=== PATIENT | male | born 1960 | race Caucasian/White ===

== ENCOUNTER 2016-08-09 09:22 | Emergency (ER) | payer OTHER ==
[~2016-08-09] VITALS: Wt 92.0 kg
[2016-08-09] MEDS ORDERED: ONDANSETRON 4 MG INJ IV STA (09:56)
[2016-08-09] MEDS ORDERED: morphine 4 MG/ML VIAL IV STA (09:56)
[2016-08-09] MEDS ORDERED: SOD CHLORIDE 0.9% 1,000 ML IV STA (09:56)
[2016-08-09 10:14] LABS: ADD SCAN DIFF NO
[2016-08-09 10:15] LABS: BASOPHILS % 0.5 % (0.0-2.0); EOSINOPHILS # 0.2 10^3/ul (0.0-0.5); EOSINOPHILS % 3.1 % (0.0-7.0); HEMATOCRIT 44.3 % (42.0-52.0); HEMOGLOBIN 15.6 g/dl (14.0-18.0); LYMPHOCYTES # 1.3 10^3/ul (0.8-2.9); MEAN CORPUSCULAR HEMOGLOBIN 32.1 pg (29.0-33.0); MEAN CORPUSCULAR HGB CONC 35.2 g/dl (32.0-37.0); MEAN CORPUSCULAR VOLUME 91.2 fl (82.0-101.0); MEAN PLATELET VOLUME 10.6 fl (7.4-10.4); MONOCYTE # 0.5 10^3/ul (0.3-0.9); MONOCYTES % 8.1 % (0.0-11.0); PLATELET COUNT 174 10^3/UL (140-415); RED BLOOD COUNT 4.86 10^6/ul (4.70-6.10); RED CELL DISTRIBUTION WIDTH 12.2 % (11.5-14.5)
[2016-08-09 10:38] LABS: ALANINE AMINOTRANSFERASE 56 IU/L (13-69); ALBUMIN 4.5 g/dl (3.3-4.9); ALBUMIN/GLOBULIN RATIO 1.73; ALKALINE PHOSPHATASE 69 IU/L (42-121); ANION GAP 15 (8-16); ASPARTATE AMINO TRANSFERASE 41 IU/L (15-46); BILIRUBIN,INDIRECT 0.6 mg/dl (0-1.1); BILIRUBIN,TOTAL 0.6 mg/dl (0.2-1.3); BLOOD UREA NITROGEN 14 mg/dl (7-20); CALCIUM 9.5 mg/dl (8.4-10.2); CARBON DIOXIDE 26 mmol/L (21-31); CHLORIDE 105 mmol/L (97-110); CREATININE 0.74 mg/dl (0.61-1.24); GLUCOSE 101 mg/dl (70-220); POTASSIUM 4.2 mmol/L (3.5-5.1); SODIUM 142 mmol/L (135-144); TOTAL PROTEIN 7.1 g/dl (6.1-8.1)
--- NOTE | 2016-08-09 10:50 | RADRPT ---
PROCEDURE: Abdominal Ultrasound (right upper quadrant). CLINICAL INDICATION: Abdominal pain TECHNIQUE: Multiple real-time longitudinal and transverse images of the right upper quadrant of th e abdomen were acquired utilizing a curved array transducer. Images were reviewed on a high-resoluti on PACS workstation. COMPARISON: None FINDINGS: The liver is normal in size and echogenicity. The portal vein is patent. No focal masses are identi fied. There is no evidence of intra or extrahepatic ductal dilatation. The common bile duct measur es 5.0 mm in diameter. No gallstones or gallbladder wall thickening is seen. The visualized portions of the pancreas are unremarkable with obscuration of the tail of the pancrea s. No free fluid is identified. There is no evidence of right hydronephrosis or renal calcification. The right kidney measures 10.2 cm in length. The visualized portions of the aorta and inferior vena cava are within normal limits. IMPRESSION: 1. Unremarkable right upper quadrant ultrasound. RPTAT: KK .Allen Naqvi MD, MD Date Time Electronically viewed and signed by .Allen Naqvi MD, MD on 08/09/2016 10:50 .B/
[2016-08-09 10:51] LABS: TROPONIN-I < 0.012 ng/ml (0.00-0.12)
--- NOTE | 2016-08-09 11:14 | RADRPT ---
PROCEDURE: CT Abdomen and Pelvis without contrast. CLINICAL INDICATION: Abdominal pain TECHNIQUE: CT scan of the abdomen and pelvis without contrast was performed on a multi-slice CT [facility] without intravenous contrast. Coronal and sagittal reformatted images were obtained from the axial source images. Images were reviewed on a high-resolution PACS workstation. One or more of the following does reduction techniques were used: Automated exposure control; adjustment of the mA an d/or kV according to patient size; use of the aorta of reconstruction technique. The total exam CTD I equals 15.4 mGy and the total exam DLP equals 1072.49 mGy-cm. COMPARISON: None available. FINDINGS: There are minimal dependent changes in the posterior lower lobes. The lung bases are otherwise constance r. Heart size is normal, and there is no evidence of pericardial thickening or effusion. The liver, spleen, and pancreas are normal given limitations of a noncontrast CT examination. The g allbladder is normal. The adrenal glands are normal. The kidneys without renal calculus or hydronephrosis. The aorta is of normal caliber. There is no retroperitoneal lymph node enlargment. There is no evidence of large or small bowel obstruction. A normal appendix is identified. No michael e fluid or fluid collections are identified. No inflammatory changes are seen. There is a tiny kathryn umbilical hernia containing only fat. The prostate is mildly enlarged. No enlarged pelvic sidewall lymph nodes are seen. The bladder is w ithin normal limits. No free fluid is identified. The inguinal regions are unremarkable. There are mild degenerate change of the spine.. IMPRESSION: 1. No CT evidence of acute intra-abdominal or pelvic process. 2. No CT evidence of urolithiasis. 3. Tiny periumbilical hernia containing only fat. 4. Prostatomegaly. RPTAT: KK .Allen Naqvi MD, MD Date Time Electronically viewed and signed by .Allen Naqvi MD, MD on 08/09/2016 11:13 .B/
[2016-08-09 11:18] LABS: ADD UMIC YES; UR ASCORBIC ACID NEGATIVE (NEGATIVE); UR BILIRUBIN (Dip) NEGATIVE (NEGATIVE); UR BLOOD (Dip) 2+ mg/dL (NEGATIVE); UR CLARITY CLEAR (CLEAR); UR COLOR STRAW (YELLOW); UR GLUCOSE (Dip) NEGATIVE (NEGATIVE); UR KETONES (Dip) NEGATIVE (NEGATIVE); UR LEUKOCYTE ESTERASE (Dip) NEGATIVE Leu/ul (NEGATIVE); UR NITRITE (Dip) NEGATIVE (NEGATIVE); UR RBC 1 /HPF (0-5); UR SPECIFIC GRAVITY (Dip) 1.004 (1.003-1.030); UR TOTAL PROTEIN (Dip) NEGATIVE (NEGATIVE); UR UROBILINOGEN (Dip) NEGATIVE (NEGATIVE)
[2016-08-09] MEDS ORDERED: PANT40TA3 PO (11:34)
--- NOTE | 2016-08-09 11:35 | ERD ---
ER Documentation Chief Complaint Date/Time DATE: 08/09/16 TIME: 11:35 Chief Complaint ABD PAIN FOR SEVERAL MONTHS, HX OF HERNIA, ALSO N/V HPI Patient is a 56-year-old male with no medical problems who presents with abdominal pain. The patient says that he has stomach pain and the medication that he got is not working. He said that he has had this pain for over a year but it is getting worse. He said that he feels better with eating. He has had no blood in the stool. He has had workup before but has lost 15 pounds because of this. He has been to multiple hospitals for similar visits however upon review of old medical records this is the patient's first visit to the emergency department and review of the emergency department information exchange does not show visits to other hospitals. His primary doctor is Dr. Higinio Cordero. ROS All systems reviewed and are negative except as per history of present illness. Medications Home Meds Active Scripts Pantoprazole* (Protonix*) 40 Mg Tablet., 40 MG PO DAILY, #20 TAB Prov:YESSICA DYKES MD 08/09/16 Allergies Allergies: Coded Allergies: No Known Allergy (Unverified , 08/09/16) PMhx/Soc History of Surgery: No Anesthesia Reaction: No Hx Neurological Disorder: No Hx Respiratory Disorders: No Hx Cardiac Disorders: No Hx Psychiatric Problems: No Hx Miscellaneous Medical Probl: Yes (GERD) Hx Alcohol Use: No Hx Substance Use: No Hx Tobacco Use: No Smoking Status: Never smoker FmHx Family History: diabetes Physical Exam Vitals Vital Signs Date Time Temp Pulse Resp B/P Pulse Ox O2 Delivery O2 Flow Rate FiO2 08/09/16 11:37 61 20 114/75 96 Room Air 08/09/16 09:27 97.6 79 17 128/81 97 Physical Exam Const: No acute distress Head: Atraumatic Eyes: Normal Conjunctiva ENT: Normal External Ears, Nose and Mouth. Neck: Full range of motion..~ No meningismus. Resp: Clear to auscultation bilaterally Cardio: Regular rate and rhythm, no murmurs Abd: Soft, diffuse tenderness to palpation without rebound or guarding Skin: No petechiae or rashes Back: No midline or flank tenderness Ext: No cyanosis, or edema Neur: Awake and alert Psych: Normal Mood and Affect Result Diagram: 08/09/16 1000 08/09/16 1000 Results 24 hrs Laboratory Tests Test 08/09/16 10:00 08/09/16 11:00 White Blood Count 6.010^3/ul Red Blood Count 4.8610^6/ul Hemoglobin 15.6g/dl Hematocrit 44.3% Mean Corpuscular Volume 91.2fl Mean Corpuscular Hemoglobin 32.1pg Mean Corpuscular Hemoglobin Concent 35.2g/dl Red Cell Distribution Width 12.2% Platelet Count 10381^3/UL Mean Platelet Volume 10.6fl Neutrophils % 66.0% Lymphocytes % 21.0% Monocytes % 8.1% Eosinophils % 3.1% Basophils % 0.5% Nucleated Red Blood Cells % 0.0/100WBC Neutrophils # 4.010^3/ul Lymphocytes # 1.310^3/ul Monocytes # 0.510^3/ul Eosinophils # 0.210^3/ul Basophils # 0.010^3/ul Nucleated Red Blood Cells # 0.010^3/ul Sodium Level 142mmol/L Potassium Level 4.2mmol/L Chloride Level 105mmol/L Carbon Dioxide Level 26mmol/L Anion Gap 15 Blood Urea Nitrogen 14mg/dl Creatinine 0.74mg/dl Glucose Level 101mg/dl Calcium Level 9.5mg/dl Total Bilirubin 0.6mg/dl Direct Bilirubin 0.00mg/dl Indirect Bilirubin 0.6mg/dl Aspartate Amino Transf (AST/SGOT) 41IU/L Alanine Aminotransferase (ALT/SGPT) 56IU/L Alkaline Phosphatase 69IU/L Troponin I < 0.012ng/ml Total Protein 7.1g/dl Albumin 4.5g/dl Globulin 2.60g/dl Albumin/Globulin Ratio 1.73 Lipase 42U/L Urine Color STRAW Urine Clarity CLEAR Urine pH 7.0 Urine Specific [place] 1.004 Urine Ketones NEGATIVEmg/dL Urine Nitrite NEGATIVEmg/dL Urine Bilirubin NEGATIVEmg/dL Urine Urobilinogen NEGATIVEmg/dL Urine Leukocyte Esterase NEGATIVELeu/ul Urine Microscopic RBC 1/HPF Urine Microscopic WBC 1/HPF Urine Hemoglobin 2+mg/dL Urine Glucose NEGATIVEmg/dL Urine Total Protein NEGATIVEmg/dl Current Medications Medications (Trade) Dose Ordered Sig/Belen Route PRN Reason Start Time Stop Time Status Last Admin Dose Admin Sodium Chloride (NS) 1,000 ml @ 1,000 mls/hr Q1H STAT IV 6/27/17 09:56 08/09/16 10:55 DC 08/09/16 10:04 Morphine Sulfate (morphine) 4 mg ONCE STAT IV 08/09/16 09:56 08/09/16 09:58 DC 08/09/16 10:04 Ondansetron HCl (Zofran Inj) 4 mg ONCE STAT IV 08/09/16 09:56 08/09/16 09:58 DC 08/09/16 10:03 Procedures/MDM EKG read by me: Rate/Rhythm: Regular rate and rhythm at a rate of 66 Intervals: Normal Impression: No evidence of ischemia or arrhythmia CT negative per radiology. Ultrasound gallbladder negative per radiology. Patient is a 56-year-old male presents with abdominal pain. He had a full workup including laboratory studies, ultrasound gallbladder, and CT scan of the abdomen and pelvis. His workup was unremarkable and at this point I feel that outpatient management is appropriate the patient will be discharged. I doubt appendicitis, cholecystitis, pancreatitis, or bowel obstruction. Departure Diagnosis: Primary Impression: Abdominal pain Abdominal location: generalized Qualified Code: R10.84 - Generalized abdominal pain Condition: Fair Patient Instructions: Abdominal Pain Additional Instructions: Llame al doctor MAANA y vamshi rolando MARVIN PARA DENTRO DE 1-2 MCCANN.Dgale a la secretaria que nosotros le instruimos hacer esta marvin.Avise o llame si marshall condicin se empeora antes de la marvin. Regresa aqui si peor o no mejor. YESSICA DYKES MD Aug 09, 2016 11:35
[2016-08-09 11:37] VITALS: BP 114/75; PULSE 61; RESP 20
== END 2016-08-09 12:02 | disposition home or self-care (01) ==
LOC: E/R 09:22
DX: R10.84 Generalized abdominal pain (principal); R40.2362 Coma scale, best motor response, obeys commands, at arrival to emergency department; R11.2 Nausea with vomiting, unspecified; R40.2142 Coma scale, eyes open, spontaneous, at arrival to emergency department
CPT/HCPCS: 74176; 76705; 80053; 81001; 83690; 84484; 85025; 93005; J2270; J2405; J7030; 36415; 96374; 96375

== ENCOUNTER 2016-11-07 10:43 | Day surgery (SDC) | payer OTHER ==
[~2016-11-07] VITALS: Ht 175.3 cm; Wt 97.1 kg
[~2016-11-07 10:43] MED LIST: PANT40TA3 PO
[2016-11-07 11:35] VITALS: Ht 175.3 cm; Wt 97.1 kg
== END 2016-11-07 17:04 | disposition home or self-care (01) ==
LOC: GIL 10:43
PROVIDERS: ATTEND Internal Medicine
DX: R10.9 Unspecified abdominal pain (principal); Z53.9 Procedure and treatment not carried out, unspecified reason

== ENCOUNTER 2017-02-22 10:11 | Emergency (ER) | END 2017-02-22 16:41 | disposition home or self-care (01) ==

== ENCOUNTER 2017-03-13 11:22 | Day surgery (SDC) | END 2017-03-13 14:56 | disposition home or self-care (01) ==

== ENCOUNTER 2017-03-24 09:16 | Emergency (ER) | END 2017-03-24 14:19 | disposition home or self-care (01) ==

== ENCOUNTER 2017-11-15 08:45 | Emergency (ER) | END 2017-11-15 09:41 | disposition home or self-care (01) ==

== ENCOUNTER 2018-05-13 09:30 | Emergency (ER) | payer OTHER ==
[~2018-05-13] VITALS: Ht 182.9 cm; Wt 100.0 kg
[~2018-05-13 09:30] MED LIST changes: +ATOR40TA68 PO; +FLUO10CA17 PO; +HYDR-3980 PO; +NAPR-985 PO; +ONDA4TAB14 PO; -PANT40TA3 PO; +TRAZ-111 PO
[2018-05-13 09:36] VITALS: BP 133/79; PULSE 75; RESP 20; Ht 182.9 cm; Wt 100.0 kg
[2018-05-13] MEDS ORDERED: KETOROLAC 60 MG INJ IM STA (10:30)
[2018-05-13] MEDS ORDERED: CYCL10TA7 PO (10:46)
[2018-05-13] MEDS ORDERED: NAPR-985 PO (10:46)
--- NOTE | 2018-05-13 10:54 | ERD ---
ER Documentation Chief Complaint Chief Complaint Complains of back and neck pain x 3 days HPI This is a 57-year-old male with a nonsignificant past medical history presents ED with left posterior shoulder pain and upper back pain that extends into the neck for the past 1 week. Patient works at a [employer] and often lifts the heavy bodies. Patient denies any fall or injury to account for pain. Denies decreased range of motion, tingling, numbness, lack sensation, bowel/bladder incontinence, saddle paresthesias, fever, chills and all other symptoms. ROS All systems reviewed and are negative except as per history of present illness. Medications Home Meds Active Scripts Naproxen* (Naprosyn*) 500 Mg Tablet, 500 MG PO BID PRN for PAIN AND/OR INFLAMMATION, #30 TAB Prov:DEBBIE CONWAY PA-C 05/13/18 Cyclobenzaprine Hcl* (Cyclobenzaprine Hcl*) 10 Mg Tablet, 10 MG PO TID, #15 TAB Prov:DEBBIE CONWAY PA-C 05/13/18 Naproxen* (Naprosyn*) 500 Mg Tablet, 500 MG PO BID PRN for PAIN AND/OR INFLAMMATION, #30 TAB Prov:TERENCE RODRÍGUEZ PA-C 11/15/17 Ondansetron (Ondansetron Odt) 4 Mg Tab.rapdis, 4 MG PO Q6H PRN for NAUSEA AND/OR VOMITING, #30 TAB Prov:YESSICA DYKES MD 03/24/17 Hydrocodone/Acetaminophen ([place] 10-325 Tablet) 1 Each Tablet, 1 TAB PO Q6H PRN for PAIN, #7 TAB Prov:YESSICA DYKES MD 03/24/17 Reported Medications Trazodone Hcl* (Trazodone Hcl*) 50 Mg Tablet, 50 MG PO QHS, #30 TAB 03/13/17 Fluoxetine Hcl* (Fluoxetine Hcl*) 10 Mg Capsule, 10 MG PO DAILY, CAP 03/13/17 Atorvastatin* (Atorvastatin*) 40 Mg Tablet, 40 MG PO QHS, #30 TAB 02/22/17 Allergies Allergies: Coded Allergies: No Known Allergy (Unverified , 05/13/18) PMhx/Soc History of Surgery: No Anesthesia Reaction: No Hx Neurological Disorder: No Hx Respiratory Disorders: No Hx Cardiac Disorders: Yes (hypercholesterolemia) Hx Psychiatric Problems: No Hx Miscellaneous Medical Probl: No Hx Alcohol Use: Yes Hx Substance Use: No Hx Tobacco Use: No Smoking Status: Never smoker Physical Exam Vitals Vital Signs Date Temp Pulse Resp B/P (MAP) Pulse Ox O2 O2 Flow FiO2 Time Delivery Rate 05/13/18 98.1 75 20 133/79 95 09:36 (97) Physical Exam Const: No acute distress Head: Atraumatic Eyes: Normal Conjunctiva ENT: Normal External Ears, Nose and Mouth. Neck: Full range of motion. No meningismus. Resp: Clear to auscultation bilaterally Cardio: Regular rate and rhythm, no murmurs Back: No thoracic or lumbar midline tenderness, no step-off deformities, Ext: No cyanosis, or edema Upper Extremity -left, muscle spasm present along patient's left posterior shoulder extending up to neck Skin: No laceration, or evidence of external trauma Compartments: Soft Motor: Full active range of motion shoulder/elbow/wrist/hand Sensation: Intact shoulder/pinky/middle finger/thumb web space Bones: Nontender humerus/elbow/forearm/wrist/hand Snuffbox: Nontender Joints: No effusion Pulses/Perfusion: 2+ radial, Capillary refill < 2 seconds Neur: Awake and alert Psych: Normal Mood and Affect Results 24 hrs Current Medications Medications Dose Sig/Belen Start Time Status Last (Trade) Ordered Route PRN Stop Time Admin Dose Reason Admin Ketorolac 60 mg ONCE STAT 05/13/18 DC 05/13/18 Tromethamine IM 10:30 10:36 (Toradol) 05/13/18 10:32 Procedures/MDM ER COURSE: The patient was given Toradol The medication was well tolerated and the patient reports improvement in symptoms. The patient was stable throughout ED course. I kept the patient and/or family informed of laboratory and diagnostic imaging results throughout the emergency room course. The patient was promptly evaluated and a treatment plan was devised based on H&P and other data. This plan was discussed with the patient who agreed and had no further questions or concerns prior to discharge. MEDICAL DECISION MAKIN-year-old male presents ED with left shoulder pain and upper back pain that extends into the left side of the neck. There are muscle spasms present on patient's exam. This is likely a muscle strain with spasm. History and physical examination other data not consistent with processing including cauda equina syndrome, cord compression, infiltrative etiology, infectious etiology, epidural abscess, fracture, obstructive pyelonephritis, abdominal aortic aneurysm. Vitals are stable and patient can be managed outpatient with close follow-up. Advised patient to follow up with primary care in the next 48 hours. return to ED with any worsening symptoms DISPOSITION PLAN: We discussed follow up with the patient's primary care doctor within 24 to 48 hours. Patient counseled regarding my diagnostic impression and care plan. Prior to discharge all questions answered. Pt agrees with treatment plan and understands strict return precautions. Precautionary instructions provided including instructions to return to the ER if not improving or for any worsening or changing symptoms or concerns. SPECIALIST FOLLOW UP RECOMMENDED: None Patient has been advised to follow up with primary care in 1-2 days. Disclaimer: Inadvertent spelling and grammatical errors are likely due to EHR/dictation software use and do not reflect on the overall quality of patient care. Also, please note that the electronic time recorded on this note does not necessarily reflect the actual time of the patient encounter. Blood Pressure Assessment: Patient's blood pressure was elevated (>120/80) but appears stable without evidence of hypertension emergency or urgency. The patient was counseled about the risks of hypertension and urged to pursue outpatient monitoring and therapy within a week with their primary care physician. Departure Diagnosis: Primary Impression: Upper back pain Additional Impressions: Muscle spasm Shoulder pain, left Chronicity: acute Qualified Codes: M25.512 - Pain in left shoulder Condition: Stable Patient Instructions: Muscle Spasm, Back Sprain/Strain Referrals: [facility] Usted se trinidad hecho un examen mdico de control que le indica que no est en rolando condicin que requiera tratamiento urgente en el Departamento de Emergencia. Un estudio ms profundo y el tratamiento de marshall condicin pueden esperar sin ningn riesgo hasta que usted sea atendida/o en el consultorio de marshall mdico o rolando clnica. Es responsabilidad suya arreglar rolando kashmir para el seguimiento del lindsay. MANEJO DE CONDICIONES NO URGENTES EN EL FUTURO 1) Si usted tiene un mdico de atencin primaria: Usted debera llamar a marshall mdico de atencin primaria antes de venir al departamento de emergencia. Despus de las horas de consultorio, marshall doctor o marshall asociado/a est disponible por telfono. El mdico o enfermero de heather en el servicio telefnico puede asesorarle por roxann medio para atender el problema, o lindsay contrario se puede programar rolando kashmir. 2) Si usted no tiene un mdico de atencin primaria: Llame al mdico o clnica de referencia que aparece abajo ragini las horas de consultorio para hacer rolando kashmir para que le vean. CLINICAS: [place] [address] [phone] [facility] [phone] [place] [address] [phone] [place] [address] [phone] [facility]. [place] [address] [phone] [place] [phone] [address] Additional Instructions: Paciente aconseja volver a Departamento de urgencias inmediatamente para sntomas nuevos o que empeoran . Paciente aconseja posteriores con el PCP en 1-2 hawkins . Paciente verbaliza la comprehensin y est de acuerdo con el tratamiento y el curso de accin. Si el paciente no tiene ninguna de atencin primaria pueden seguir con [facility] [address] [place] [address] o [facility] [address] [place] [id number] DEBBIE CONWAY PA-C May 13, 2018 10:54
== END 2018-05-13 10:57 | disposition home or self-care (01) ==
LOC: FTE 09:30
DX: M54.6 Pain in thoracic spine (principal); M25.512 Pain in left shoulder; M62.838 Other muscle spasm
CPT/HCPCS: 96372; 99284; J1885

== ENCOUNTER 2018-09-12 07:46 | Emergency (ER) | payer OTHER ==
[~2018-09-12] VITALS: Ht 177.8 cm; Wt 100.9 kg
[~2018-09-12 07:46] MED LIST changes: +ACET500C5 PO; +CYCL10TA7 PO; +HYDR-4011 PO; +MED4DP PO; +NALO4SPR NS
[2018-09-12 07:50] VITALS: BP 126/81; PULSE 68; RESP 24; Ht 177.8 cm; Wt 100.9 kg
[2018-09-12] MEDS ORDERED: KETOROLAC 60 MG INJ IM STA (08:08)
[2018-09-12] MEDS ORDERED: DIAZEPAM 5 MG TAB PO ONE (08:30)
--- NOTE | 2018-09-12 09:04 | ERD ---
ER Documentation Chief Complaint Chief Complaint lower back pain x 3 weeks HPI 58-year-old male presenting with lower back pain x2 weeks. Patient's pain is worse with movement. Denies any traumatic injuries or falls. Took Tylenol with no alleviation of symptoms. Denies any changes in urination or bowel movement. No other medical problems. NKDA. Surgical history denies. Social history denies ROS All systems reviewed and are negative except as per history of present illness. Medications Home Meds Active Scripts Methylprednisolone* (Medrol* DOSE PACK) 4 Mg/Dose-Pack Tab.ds.pk, 4 MG PO . DIRECTED, #1 PACKET Prov:TERENCE RODRÍGUEZ PA-C 09/12/18 Cyclobenzaprine Hcl* (Cyclobenzaprine Hcl*) 10 Mg Tablet, 10 MG PO TID, #15 TAB Prov:TERENCE RODRÍGUEZ PA-C 09/12/18 Naproxen* (Naprosyn*) 500 Mg Tablet, 500 MG PO BID PRN for PAIN AND/OR INFLAM MATION, #30 TAB Prov:TERENCE RODRÍGUEZ PA-C 09/12/18 Hydrocodone/Acetaminophen ([place] 5-325 Tablet) 1 Each Tablet, 1 TAB PO Q6H PRN for PAIN, #7 TAB Prov:TERENCE RODRÍGUEZ PA-C 09/12/18 Naproxen* (Naprosyn*) 500 Mg Tablet, 500 MG PO BID PRN for PAIN AND/OR INFLAMMATION, #30 TAB Prov:DEBBIE CONWAY PA-C 05/13/18 Cyclobenzaprine Hcl* (Cyclobenzaprine Hcl*) 10 Mg Tablet, 10 MG PO TID, #15 TAB Prov:DEBBIE CONWAY PA-C 05/13/18 Naproxen* (Naprosyn*) 500 Mg Tablet, 500 MG PO BID PRN for PAIN AND/OR INFLAMMATION, #30 TAB Prov:TERENCE RODRÍGUEZ PA-C 11/15/17 Ondansetron (Ondansetron Odt) 4 Mg Tab.rapdis, 4 MG PO Q6H PRN for NAUSEA AND/OR VOMITING, #30 TAB Prov:YESSICA DYKES MD 03/24/17 Hydrocodone/Acetaminophen ([place] 10-325 Tablet) 1 Each Tablet, 1 TAB PO Q6H PRN for PAIN, #7 TAB Prov:YESSICA DYKES MD 03/24/17 Reported Medications Trazodone Hcl* (Trazodone Hcl*) 50 Mg Tablet, 50 MG PO QHS, #30 TAB 03/13/17 Fluoxetine Hcl* (Fluoxetine Hcl*) 10 Mg Capsule, 10 MG PO DAILY, CAP 03/13/17 Atorvastatin* (Atorvastatin*) 40 Mg Tablet, 40 MG PO QHS, #30 TAB 02/22/17 Allergies Allergies: Coded Allergies: No Known Allergy (Unverified , 05/13/18) PMhx/Soc Medical and Surgical Hx: pt denies Surgical Hx History of Surgery: No Anesthesia Reaction: No Hx Neurological Disorder: No Hx Respiratory Disorders: No Hx Cardiac Disorders: Yes (hypercholesterolemia) Hx Psychiatric Problems: No Hx Miscellaneous Medical Probl: No Hx Alcohol Use: Yes (occasional) Hx Substance Use: No Hx Tobacco Use: No Smoking Status: Never smoker FmHx Family History: No diabetes, No coronary disease, No other Physical Exam Vitals Vital Signs Date Temp Pulse Resp B/P (MAP) Pulse Ox O2 O2 Flow FiO2 Time Delivery Rate 09/12/18 98.8 68 24 126/81 98 07:50 (96) Physical Exam GENERAL: The patient is well-appearing, well-nourished, in no acute distress CHEST: Clear to auscultation bilaterally. There are no rales, wheezes or rhonchi. HEART: Regular rate and rhythm. No murmurs, clicks, rubs or gallops. BACK: No midline or flank tenderness. Tender to palpation over paraspinous muscles in the lumbar spine. No midline tenderness. No CVA tenderness EXTREMITIES: Equal pulses bilaterally. There is no peripheral clubbing, cyanosis or edema. No focal swelling or erythema. Full range of motion. Grossly neurovascularly intact. NEUROLOGIC: Alert and oriented. Cranial nerves II through XII intact. Motor strength in all 4 extremities with 5 out of 5 strength. Sensation grossly intact. Normal speech and gait. Results 24 hrs Laboratory Tests Test 09/12/18 08:26 Bedside Urine pH (LAB) 7.0 Bedside Urine Protein (LAB) Negative Bedside Urine Glucose (UA) Negative Bedside Urine Ketones (LAB) Negative Bedside Urine Blood Negative Bedside Urine Nitrite (LAB) Negative Bedside Urine Leukocyte Esterase (L Negative Current Medications Medications Dose Sig/Belen Start Time Status Last (Trade) Ordered Route PRN Stop Time Admin Dose Reason Admin Ketorolac 60 mg ONCE STAT 09/12/18 DC 09/12/18 Tromethamine IM 08:08 08:18 (Toradol) 09/12/18 08:09 Diazepam 5 mg ONCE ONCE 09/12/18 DC (Valium) PO 08:30 09/12/18 08:31 Procedures/MDM ER course: 58-year-old male presenting with lower back pain x2 weeks. Patient's pain is likely musculoskeletal as it is reproducible and worse with movement. I have low suspicion for acute fracture dislocation. I have low suspicion for cauda equina, discitis or epidural abscess. Patient symptoms are likely associated with musculoskeletal strain and I will discharge with supportive medications. I have low suspicion for acute abdominal emergency as patient's abdominal exam is non-concerning and vitals are stable. I have low suspicion for kidney abnormalities patient's urine is within normal limits. I do not feel blood work or imaging is indicated. She is discharged with strict ER precautions and told to follow-up with primary care within 1 to 2 days for close evaluation. All questions answered at discharge Departure Diagnosis: Primary Impression: Back pain Condition: Stable Patient Instructions: Back Pain (Acute Or Chronic) Referrals: [facility] YOU HAVE RECEIVED A MEDICAL SCREENING EXAM AND THE RESULTS INDICATE THAT YOU DO NOT HAVE A CONDITION THAT REQUIRES URGENT TREATMENT IN THE EMERGENCY DEPARTMENT. FURTHER EVALUATION AND TREATMENT OF YOUR CONDITION CAN WAIT UNTIL YOU ARE SEEN IN YOUR DOCTORS OFFICE WITHIN THE NEXT 1-2 DAYS. IT IS YOUR RESPONSIBILITY TO MAKE AN APPOINTMENT FOR FOLOW-UP CARE. IF YOU HAVE A PRIMARY DOCTOR --you should call your primary doctor and schedule an appointment IF YOU DO NOT HAVE A PRIMARY DOCTOR YOU CAN CALL OUR PHYSICIAN REFERRAL HOTLINE AT IF YOU CAN NOT AFFORD TO SEE A PHYSICIAN YOU CAN CHOSE FROM THE FOLLOWING [facility] [address] [facility] [address] [facility] [facility] [address] [facility] [address] [facility] [address] [facility]. [facility]. [address] Additional Instructions: FOLLOW UP WITH YOUR PRIMARY CARE PHYSICIAN TOMORROW.Return to this facility if you are not improving as expected. TERENCE RODRÍGUEZ PA-C Sep 12, 2018 09:04
== END 2018-09-12 08:48 | disposition home or self-care (01) ==
LOC: FTE 07:46
DX: M54.5 Low back pain (principal)
CPT/HCPCS: 81003; 96372; 99284; J1885

== ENCOUNTER 2018-09-30 08:37 | Emergency (ER) | payer OTHER ==
[~2018-09-30] VITALS: Ht 177.8 cm; Wt 101.6 kg
[2018-09-30 08:43] VITALS: Ht 177.8 cm; Wt 101.6 kg
[2018-09-30] MEDS ORDERED: HYDROCODONE/APAP (10/325) TAB PO ONE (09:30)
[2018-09-30] MEDS ORDERED: SOD CHLORIDE 0.9% 500 ML IV ONE (10:00)
[2018-09-30] MEDS ORDERED: IOHEXOL 100 ML ONE (10:45)
[2018-09-30] MEDS ORDERED: SOD CHLORIDE 0.9% 100 ML ONE (10:45)
[2018-09-30] MEDS ORDERED: IOHEXOL 350MG/ML 50 ML BTL ONE (10:46)
[2018-09-30 12:13] VITALS: BP 131/78; PULSE 74; RESP 20
== END 2018-09-30 12:15 | disposition home or self-care (01) ==
LOC: FTE 08:37
DX: M54.6 Pain in thoracic spine (principal); R41.82 Altered mental status, unspecified
CPT/HCPCS: 70450; 71275; 75635; 76775; 80053; 85025; 93005; 99285; J7040; Q9967